=== PATIENT | male | born 1980 | race Caucasian/White ===

== ENCOUNTER 2022-04-06 17:24 | Inpatient (IN) | payer SELFPAY ==
[~2022-04-06] VITALS: Ht 170.2 cm; Wt 80.3 kg
[2022-04-06] MEDS ORDERED: VENL-68 PO (17:40)
[2022-04-06] MEDS ORDERED: TUBERCULIN, PURIFIED PROTEIN DERIVATIVE 5 TU/0.1 ML SYRINGE ID ONE (18:00)
[2022-04-06] MEDS ORDERED: ZOLPIDEM TARTRATE 10 MG TABLET PO PRN (18:00)
[2022-04-06] MEDS ORDERED: LORazepam 1 MG TABLET PO PRN (18:00)
[2022-04-06] MEDS ORDERED: MAG HYDROX/AL HYDROX/SIMETH ES 30 ML SUSPENSION UDCUP PO PRN (18:00)
[2022-04-06] MEDS ORDERED: MAGNESIUM HYDROXIDE SUSPENSION 30 ML UDCUP PO PRN (18:00)
[2022-04-06] MEDS ORDERED: PROMETHAZINE HCL 25 MG TABLET PO PRN (18:00)
[2022-04-06] MEDS ORDERED: GuaiFENesin/D-METHORPHAN [SUGAR-FREE] 200-20MG/10 ML SYRUP UDCUP PO PRN (18:00)
[2022-04-06] MEDS ORDERED: HydrOXYzine PAMOATE 50 MG CAPSULE PO PRN (18:00)
[2022-04-06] MEDS ORDERED: QUEtiapine FUMARATE 100 MG TABLET PO PRN (18:00)
[2022-04-06] MEDS ORDERED: LOPERAMIDE HCL 2 MG CAPSULE PO PRN (18:00)
[2022-04-06] MEDS ORDERED: ACETAMINOPHEN 325 MG TABLET PO PRN (18:00)
[2022-04-06] MEDS: THIAMINE 100 MG TABLET PO SCH (18:02)
[2022-04-06 18:13] VITALS: BP 126/82
[2022-04-06] MEDS ORDERED: INFLUENZA VIRUS VACCINE QVS 2022-23 (6MO+)/PF 60 MCG/0.5 ML SYRINGE IM. ONE (18:15)
[2022-04-06] MEDS: MIRTAZAPINE 15 MG TABLET PO SCH (20:24)
[2022-04-06] MEDS: MELATONIN 5 MG TABLET PO SCH (20:24)
[2022-04-07 02:42] VITALS: BP 132/78
[2022-04-07 06:47] LABS: BASOPHILS % (AUTO) 0.4 % (0.0-2.0); EOSINOPHILS % (AUTO) 2.9 % (1.0-6.0); HEMATOCRIT 50.9 % (41-53); HEMOGLOBIN 17.2 g/dL (13.5-17.5); LYMPHOCYTES # (AUTO) 1.6 K/uL (1.0-4.8); LYMPHOCYTES % (AUTO) 27.6 % (22.0-44.0); MEAN CORPUSCULAR HEMOGLOBIN 31.6 pg (26.0-34.0); MEAN CORPUSCULAR HGB CONC 33.8 G/dL (31.0-37.0); MEAN CORPUSCULAR VOLUME 93 fL (80-100); MONOCYTES # (AUTO) 0.4 K/uL (0.1-1.0); MONOCYTES % (AUTO) 7.1 % (2.0-9.0); NEUTROPHILS # (AUTO) 3.7 K/uL (1.8-7.7); PLATELET COUNT (AUTO) 210 K/uL (150-450); RED BLOOD CELL COUNT(AUTO) 5.45 MIL/uL (4.50-5.90); RED CELL DISTRIBUTION WIDTH 13.2 % (11.5-14.5)
[2022-04-07 07:06] LABS: HEMOGLOBIN A1C 5.2 % (3.8-5.6)
[2022-04-07 07:10] LABS: ALANINE AMINOTRANSFERASE 23 U/L (12-78); ALBUMIN 3.9 g/dL (3.4-5.0); ALKALINE PHOSPHATASE 85 U/L (46-116); ANION GAP 6 mmol/L (8-16); ASPARTATE AMINOTRANSFERASE 16 U/L (15-37); BILIRUBIN,TOTAL 0.6 mg/dL (0.1-1.0); CALCIUM, TOTAL 8.8 mg/dL (8.8-10.5); CARBON DIOXIDE 29 mmol/L (22-29); CHLORIDE 104 mmol/L (98-107); CHOL/HDL RATIO 3.9 (4.2-7.3); CHOLESTEROL 183 mg/dL (131-200); CREATININE 1.03 mg/dL (0.60-1.30); FREE T4 (FREE THYROXINE) 0.89 ng/dL (0.76-1.46); GLUCOSE,RANDOM 81 mg/dL (70-110); HDL CHOLESTEROL 47 mg/dL (40-60); LDL CHOL (CALC.) 117 mg/dL (0-130); POTASSIUM 3.9 mmol/L (3.5-5.1); SODIUM SERUM 139 mmol/L (136-145); THYROID STIMULATING HORMONE 0.69 uIU/mL (0.36-3.74); TOTAL PROTEIN, SERUM 7.1 g/dL (6.4-8.2); TRIGLYCERIDES 94 mg/dL (15-150); UREA NITROGEN, BLOOD 16 mg/dL (7-18)
[2022-04-07 07:11] LABS: GLOMERULAR FILTR. RATE CALC > 60 mL/min (>60)
[2022-04-07] MEDS: FOLIC ACID 1 MG TABLET PO SCH (08:22)
[2022-04-07] MEDS: NALTREXONE HCL 50 MG TABLET PO SCH (08:22)
[2022-04-07] MEDS: THIAMINE 100 MG TABLET PO SCH ×2 (08:22→16:18)
[2022-04-07] MEDS: OMEGA-3/DHA/EPA/FISH OIL 1,000 MG CAPSULE PO SCH (08:22)
[2022-04-07] MEDS: MULTIVITAMINS WITH MINERALS, THERAPEUTIC TABLET PO SCH (08:22)
[2022-04-07 08:53] VITALS: BP 113/77
[2022-04-07] MEDS: MIRTAZAPINE 15 MG TABLET PO SCH (20:28)
[2022-04-07] MEDS: MELATONIN 5 MG TABLET PO SCH (20:28)
[2022-04-07 20:37] VITALS: BP 107/62
[2022-04-08 07:38] VITALS: BP 120/70
[2022-04-08] MEDS: MULTIVITAMINS WITH MINERALS, THERAPEUTIC TABLET PO SCH (08:21)
[2022-04-08] MEDS: FOLIC ACID 1 MG TABLET PO SCH (08:21)
[2022-04-08] MEDS: THIAMINE 100 MG TABLET PO SCH (08:21)
[2022-04-08] MEDS: OMEGA-3/DHA/EPA/FISH OIL 1,000 MG CAPSULE PO SCH (08:21)
[2022-04-08] MEDS: NALTREXONE HCL 50 MG TABLET PO SCH (08:21)
[2022-04-08 08:24] VITALS: BP 120/62
[2022-04-08] MEDS ORDERED: OMEG-135 PO (14:34)
[2022-04-08] MEDS ORDERED: MELA5TAB40 PO (14:34)
[2022-04-08] MEDS ORDERED: NALT50TA PO (14:34)
[2022-04-08] MEDS ORDERED: MIRT-89 PO (14:34)
== END 2022-04-08 16:00 | disposition home or self-care (01) | DRG 885 ==
LOC: B3A 17:41
PROVIDERS: ADMIT Psychiatry & Neurology Psychiatry; ATTEND Psychiatry & Neurology Psychiatry
DX: F33.2 Major depressive disorder, recurrent severe without psychotic features (principal); R45.851 Suicidal ideations; K59.00 Constipation, unspecified; F12.90 Cannabis use, unspecified, uncomplicated; F41.9 Anxiety disorder, unspecified; Z55.9 Problems related to education and literacy, unspecified; Z59.9 Problem related to housing and economic circumstances, unspecified; Z63.9 Problem related to primary support group, unspecified; Z65.3 Problems related to other legal circumstances
CPT/HCPCS: 80053; 80061; 83036; 84439; 84443; 85025; 86592; Q9967